=== PATIENT | male | born 1965 | race Two or more races ===

== ENCOUNTER 2017-07-29 14:43 | Emergency (ER) | payer BC, MEDICAID ==
[2017-07-29] MEDS ORDERED: IBUPROFEN 600 MG TAB PO ONE (15:02)
--- NOTE | 2017-07-29 15:15 | EDPHY ---
H & P Time Seen by Provider: 07/29/17 15:00 HPI/ROS: CHIEF COMPLAINT: Right foot and ankle pain History by patient HISTORY OF PRESENT ILLNESS: 52-year-old otherwise healthy man presents complaining of pain and swelling in his right ankle after he inverted his ankle in the bathroom tripping over his dog last night. He has had pain, swelling and difficulty weight-bearing ever since. He took a ibuprofen around 2 in the morning but at any anything today. He denies any other pain or injury. He denies any knee pain. REVIEW OF SYSTEMS: As in HPI, and all other systems reviewed and are negative Smoking Status: Never smoked Physical Exam: General Appearance: Alert , uncomfortable appearing Head: Normocephalic, atraumatic Eyes: Pupils equal and round no injection. Extraocular movements are intact. Musculoskeletal: Neck is supple and nontender. Extremities: Right knee with full range of motion no obvious deformity, right ankle positive swelling and ecchymoses but extends all the way to his toes and tenderness over lateral malleolus and base of 5th metatarsal. Patient can wiggle his toes with pain. Decreased range of motion of ankle due to pain. No proximal fibular tenderness. test intact bilaterally. Distal sensation intact. Distal cap refill less than 2 sec. DP pulse 2+ and equal to left. Left side uninvolved. Skin: No rashes or lesions except as described above. Constitutional: Initial Vital Signs Temperature (C) 36.4 C 07/29/17 14:54 Heart Rate 83 07/29/17 14:54 Respiratory Rate 16 07/29/17 14:54 Blood Pressure 160/101 H 07/29/17 14:54 O2 Sat (%) 95 07/29/17 14:54 O2 Delivery Mode Room Air Allergies/Adverse Reactions: No Known Allergies Allergy (Unverified 07/29/17 14:54) Home Medications: Medication Instructions Recorded Hydrocodone/APAP 5/325 [[place] 1 - 2 tab PO Q4H PRN #10 tab 07/29/17 5/325 (*)] MDM/Departure - MDM Imaging Results: Imaging Impressions Ankle X-Ray 07/29/17 14:54 Impression: 1. Diffuse soft tissue swelling with no acute osseous findings. 2. Additional findings as above. Foot X-Ray 07/29/17 15:12 Impression: No evidence for acute osseous abnormality right foot. Imaging: Discussed imaging studies w/ apprentice/lineman Radiologist Medications Given: Discontinued Medications Ibuprofen (Motrin) 600 mg PO EDNOW ONE Stop: 07/29/17 15:03 Last Admin: 07/29/17 15:05 Dose: 600 mg ED Course/Re-evaluation: 52-year-old man presents with marked right ankle and foot pain and swelling and ecchymoses. X-ray showed no evidence of fracture. Patient was given ibuprofen and ice with some improvement. He is placed in an ankle stirrup. He will be weight-bearing as tolerated. We discussed home care and follow-up. Patient was also noted to have elevated blood pressure. On recheck this was still high. Patient is referred for primary care for this. - Depart Disposition: Home, Routine, Self-Care Clinical Impression: Elevated blood pressure reading Ankle sprain Qualifiers: Encounter type: initial encounter Involved ligament of ankle: unspecified ligament Laterality: right Qualified Code(s): S93.401A - Sprain of unspecified ligament of right ankle, initial encounter Condition: Good Instructions: Ankle Sprain (ED), Ankle Stirrup Splint (ED) Additional Instructions: You were seen by Dr. Cinthia Baker today. X-ray showed no evidence of fracture (broken bone). Continue to ice your ankle and foot and keep it elevated above the level of the heart the next 48 hr. Use crutches as needed for comfort. You may put as much weight on it as you can stand. It is not dangerous to walk on it. You will not make it worse. Continue to take ibuprofen 600 mg with meals and at bedtime for pain. You may add acetaminophen (Tylenol) 1000 mg every 6 hr as needed for pain. You may take [place] as needed for severe pain. Please follow-up with your primary care physician and have your blood pressure rechecked. Return for any worsening or new concerns. Stand Alone Forms: Work Limited Duty Prescriptions: Hydrocodone/APAP 5/325 [[place] 5/325 (*)] 1 - 2 tab PO Q4H PRN #10 tab PRN Reason: Pain, Moderate Referrals: [facility],. [Clinic] - As per Instructions Print Language: [place]
[2017-07-29 15:43] VITALS: BP 152/89
== END 2017-07-29 16:22 | disposition home or self-care (01) ==
LOC: CED 14:43
DX: S93.401A Sprain of unspecified ligament of right ankle, initial encounter (principal); R03.0 Elevated blood-pressure reading, without diagnosis of hypertension; W18.41XA Slipping, tripping and stumbling without falling due to stepping on object, initial encounter; Y92.002 Bathroom of unspecified non-institutional (private) residence as the place of occurrence of the external cause
CPT/HCPCS: 73610-PO; 73630-PO; L4350